=== PATIENT | female | born 1955 | race Caucasian/White ===

== ENCOUNTER 2017-10-28 08:02 | Inpatient (IN) ==
[2017-10-28] MEDS ORDERED: Sodium Chlor 0.9% Inj 500 ML IV.CONT ONE (08:30)
[2017-10-28] MEDS ORDERED: Chlorhexidine Gluconate 2% 1 Pack (2 Cloths) TOPICAL ONE (08:30)
[2017-10-28] MEDS ORDERED: Metoprolol Tartrate 25 MG Tablet PO ONE (08:30)
[2017-10-28] MEDS ORDERED: Sodium Chlor 0.9% Inj 73.07 ML, Ropivacaine 0.5% PF Inj 24.63 ML, Ketorolac Inj 30 MG, ... P-ARTICULR SCH ×5 (09:00)
[2017-10-28] MEDS ORDERED: TRANEXAMIC ACID IV.SIG SCH ×2 (09:00→12:00)
[2017-10-28] MEDS ORDERED: SODIUM CHLOR 0.9% IV.SIG SCH ×2 (09:00→12:00)
[2017-10-28] MEDS ORDERED: Vancomycin Inj 1,500 MG in Sodium Chlor 0.9% Inj 500 ML IV.SIG ONE (09:00)
--- NOTE | 2017-10-28 09:00 | MH ---
cc: Vincent Oates MD DATE OF ADMISSION: 10/28/2017 DIAGNOSIS: Osteoarthritis, right hip. PROPOSED SURGERY: Total hip replacement arthroplasty, right hip. PAST MEDICAL HISTORY: She has a history of anxiety and depression. She has a history of arthritis, high blood pressure and low back pain. MEDICATIONS: 1. Atenolol 50 mg daily. 2. Sertraline 75 mg daily. 3. Buspirone 15 mg daily. 4. Hydrocodone as needed for pain. 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 She smokes about a third of pack of cigarettes a day. HISTORY OF PRESENT ILLNESS: She saw me for the first time 09/11/2016 with complaints of pain in the right groin, that had gone on for more than a year. She also had low back pain on a chronic basis and also noted to have osteoarthritis of the left hip also. The patient has been treated nonoperatively with advised weight loss, oral antiinflammatory agents and also corticosteroid injections into the joint, given by the radiologist. She has now came to the point where she cannot deal with this pain anymore and therefore seeking total hip replacement arthroplasty. PROCEDURES: Total hip replacement arthroplasty through a posterior approach has been discussed in detail with the patient and her . They had some questions of wanting an anterior approach, and I told them that my recommendation was to go the posterior approach due to various different factors and that there is no substantial difference between either approach. The patient has consented to a total hip replacement arthroplasty that will be done through a posterior approach. Details of informed consent documented on the office record. Informed consent has been obtained. No guarantees made. PHYSICAL EXAMINATION: GENERAL: Reveals a moderately overweight white female, who walks with a limp. HEENT: Head is normocephalic. Pupils reactive to light. Face symmetrical. HEART: Regular rate and rhythm. No murmurs. LUNGS: Clear to auscultation. EXTREMITIES: Right hip has clear skin. She has painful range of motion with a mild flexion contracture. Pedal pulses are palpable and she moves her toes well. The potential problems of infection, dislocation, limb length discrepancy, posthospital postoperative course have all been discussed in detail. MD CHRISTINA Vargas/ct , 08:14 AM , 08:21 AM
[2017-10-28] MEDS ORDERED: fentaNYL Citrate Inj 250 MCG/5 ML Ampul ONE (09:28)
[2017-10-28] MEDS ORDERED: fentaNYL Citrate Inj 100 MCG/2 ML Ampul ONE (09:28)
[2017-10-28] MEDS ORDERED: Ketamine Inj 500 MG/10 ML Vial ONE (09:28)
[2017-10-28] MEDS ORDERED: Famotidine PF Inj 20 MG/2 ML Vial ONE (10:02)
[2017-10-28] MEDS: ceFAZolin 2 GM Premix Inj 2 GM/50 ML PIGGYBACK IV.SIG SCH ×2 (10:08→22:14)
[2017-10-28] MEDS ORDERED: Lidocaine PF 1% Inj 5 ML Syringe INFILTRATN ONE (10:11)
[2017-10-28] MEDS ORDERED: Neostigmine Inj 5 MG/5 ML Syringe IV.PUSH ONE (10:11)
[2017-10-28] MEDS ORDERED: Ketorolac Inj 30 MG/ML (IVP) Vial IV.PUSH ONE (10:11)
[2017-10-28] MEDS ORDERED: Phenylephrine/NS 1000 MCG/10ML Syringe IV.PUSH ONE (10:11)
[2017-10-28] MEDS ORDERED: Glycopyrrolate Inj 1 MG/5 ML Syringe IV.PUSH ONE (10:11)
[2017-10-28] MEDS ORDERED: Post-op Orders (for Pharmacy) OTHER STA (12:41)
[2017-10-28] MEDS ORDERED: Bisacodyl 10 MG Supp RECTAL PRN (12:41)
[2017-10-28] MEDS ORDERED: Naloxone Inj 0.4 MG/ML Vial IV.PUSH PRN ×3 (12:41→12:47)
[2017-10-28] MEDS ORDERED: Aluminum/Magnesium/Simethacone Susp 30 ML UDC PO PRN (12:41)
[2017-10-28] MEDS ORDERED: Morphine Inj 30 MG/30 ML PCA.VIAL PCA PRN (12:47)
[2017-10-28] MEDS ORDERED: Morphine Sulfate Inj 2 MG/ML Vial ONE (12:57)
--- NOTE | 2017-10-28 12:58 | P.DCO ---
- Physical Therapy Hip: Total hip, Posterior hip precautions, Abduction pillow while in bed Right Lower Extremity Weight Bearing: Weight bearing as tolerated Right Lower Extremity Range of Motion: Active assistive ROM - Nursing Nursing: Other (instruct proper wound care) Dressing changes: Do not change dressing (if problem, redness or drainage, call MD) - Certification Need for Home Health services: I have seen patient Tiarra aVldivia on 10/28/17. My clinical findings support the need for the requested home health care services because: Homebound Certification: I certify that my clinical findings support that this patient is homebound because: Homebound Certification: Unsafe to leave home unassisted, Unable to use public transportation
[2017-10-28] MEDS ORDERED: *Meperidine Inj 25 MG/ML Vial PERIprocedural Use ONLY ONE (13:05)
[2017-10-28] MEDS ORDERED: *morphine SULFATE 4 MG/ML PERIprocedure ONLY ONE ×2 (13:11→13:34)
--- NOTE | 2017-10-28 13:21 | MP ---
cc: Vincent Oates MD DATE OF OPERATION: 10/28/2017 PREOPERATIVE DIAGNOSIS: Osteoarthritis, right hip. POSTOPERATIVE DIAGNOSIS: Osteoarthritis, right hip. OPERATIVE PROCEDURE: Total hip replacement arthroplasty right hip using posterior approach. IMPLANTS USED: Navin Biomet cup porous coated 52 mm outer diameter with 2 dome screws, 36 mm E-poly, 10 mm Taperloc stem with lateral offset, 36 mm ceramic head, -6 neck length. SURGEON: Vincent Oates MD ANESTHESIA: General. TECHNIQUE: After induction of general anesthesia, the patient was placed in right lateral position supported by hip positioners. Strict lateral position was ascertained. Upper and lower extremity was properly positioned and protected. The right hip and right lower extremity thoroughly prepped with alcohol and ChloraPrep, and draped in routine fashion using double Ioban drapes. A curved lateral incision was made centered on the greater trochanter with the proximal portion of the incision, going posteriorly. Incision deepened through subcutaneous tissue and fascia. Trochanteric bursa was dissected and a Charnley retractor introduced. The hip was internally rotated, followed by dissection of the bursa and cauterization of multiple engorged veins in the area followed by reflection of the capsule and short rotators in a single flap thereby exposing the joint. The gluteus minimus reflected off the bone and a Steinmann pin placed vertically into the bone superior to the acetabulum and the pin bent to 90 degrees and used to measure length and offset followed by dislocation of the hip. The femoral neck osteotomized approximately 15 mm proximal to the lesser trochanter. Exploration of the acetabulum was carried out with the debridement of the labrum and synovial tissue, followed by reaming of the acetabulum by deepening it and also exposing bleeding subchondral bone to 51 mm. A 52 mm trial was a little bit tight, so I used a 52 mm reamer in reverse. The 52 mm cup was then impacted in place in 45 degrees of abduction, 20 degrees anteversion. Two dome screws were placed. A flat faced polyethylene was impacted in place. Femur was then exposed and cookie cutter was used, followed by canal finders and broaches to a 10 mm broach. Trial reduction was carried out with a -6 head, which revealed about 8 mm - 10 mm loss of offset and about 5 mm - 6 mm of lengthening. It was therefore decided to use a lateral offset stem. There was good stability. When trial implants were removed a lateral offset 10 mm stem impacted in place. It was about 3 mm - 4 mm short of bottoming out, but it was in good solid bone. A -6 ceramic head was placed on it and final reduction was carried out, getting good position and alignment, stability. Measurements revealed about 2 mm - 3 mm loss of offset and about 6 mm of lengthening. This relative lengthening should not be a problem since we are going to do the other hip and there will be some lengthening there also, thereby equalizing the limb lengths. The wound was irrigated with saline solution, followed by reapproximation of the flap of capsule and short external rotators to the corner of the gluteus medius and the inferior suture through a drill hole in the greater trochanter. Fascia was closed with #2 Quill and some Vicryl interrupted, the subcutaneous tissue with 0 and 2-0 Vicryl and the skin with 3-0 subcuticular Quill and Steri-Strips with Dermabond. The patient was transferred to the recovery room in satisfactory condition with an abduction pillow. The patient tolerated the procedure well. COMPLICATIONS: None. POSTOPERATIVE CONDITION: Satisfactory. PROGNOSIS: Good. ESTIMATED BLOOD LOSS: 350 mL MD CHRISTINA Vargas/quinten/farhana , 12:37 PM , 12:47 PM
[2017-10-28] MEDS: Sod Chloride 0.9% Inj 1,000 ML IV.CONT SCH ×2 (13:30→23:24)
[2017-10-28] MEDS ORDERED: HYDROmorphone PF Inj 2 MG/ML Vial ONE (13:46)
--- NOTE | 2017-10-28 14:05 | XR ---
EXAM DATE: 10/28/2017 1:55 PM EDT AGE/SEX: 62 years / Female INDICATIONS: Post-op right total hip arthroplasty. CLINICAL DATA: This is the patient's initial encounter. Patient reports that signs and symptoms have been present for 1 day and indicates a pain score of 8/10. MEDICAL/SURGICAL HISTORY: Hypertension. . Dental implants. COMPARISON: POI, XR HIP W/ AP PELVIS, BILATERAL, 09/21/2017. . FINDINGS: The patient is status post right total hip arthroplasty. Acetabular and femoral components appear wel l seated. A small amount of subcutaneous air is seen about the hip. No fracture or dislocation. CONCLUSION: Status post right hip arthroplasty. Electronically signed by: Estuardo Her MD 10/28/2017 2:03 PM EDT
[2017-10-28] MEDS ORDERED: Morphine Inj 4 MG/ML Vial IV.SIG ONE (14:15)
[2017-10-28] MEDS: Morphine Inj 30 MG/30 ML PCA.VIAL PCA PRN (14:19)
[2017-10-28] MEDS ORDERED: RIZATRIPTAN 10 MG PO PRN (14:30)
[2017-10-28] MEDS: ceFAZolin Inj 2,000 MG in Sodium Chlor 0.9% Inj 100 ML IV.SIG SCH ×2 (16:00→22:28)
[2017-10-28] MEDS: Ketorolac Inj 30 MG/ML (IVP) Vial IV.PUSH SCH (18:22)
[2017-10-28] MEDS: Senna/Docusate Sodium 8.6/50 MG Tablet PO SCH (20:25)
[2017-10-28] MEDS: Vancomycin Inj 1,000 MG in Sodium Chlor 0.9% Inj 250 ML IV.SIG SCH (23:19)
[2017-10-29] MEDS: Ketorolac Inj 30 MG/ML (IVP) Vial IV.PUSH SCH ×4 (00:28→18:07)
[2017-10-29] MEDS: Morphine Inj 30 MG/30 ML PCA.VIAL PCA PRN (00:36)
[2017-10-29] MEDS: ceFAZolin Inj 2,000 MG in Sodium Chlor 0.9% Inj 100 ML IV.SIG SCH (04:37)
--- NOTE | 2017-10-29 08:03 | P.PNOP ---
Subjective Interval history: Feeling great. Has been up to the bathroom. Wants to go home tomorrow. Physical Exam Vital signs: Vital Signs 10/28/17 08:51 10/28/17 12:52 10/28/17 12:55 Temperature 96.8 F L 98.4 F Pulse Rate 84 70 Respiratory Rate 20 14 Blood Pressure 143/85 H 145/80 H Pulse Oximetry 95 98 98 10/28/17 13:00 10/28/17 13:15 10/28/17 13:30 Temperature Pulse Rate 73 71 77 Respiratory Rate 15 16 16 Blood Pressure 130/63 124/52 L 120/53 L Pulse Oximetry 98 99 95 10/28/17 13:45 10/28/17 14:00 10/28/17 14:15 Temperature Pulse Rate 73 72 74 Respiratory Rate 16 15 15 Blood Pressure 119/50 L 111/55 L 109/56 L Pulse Oximetry 95 96 96 10/28/17 14:30 10/28/17 14:45 10/28/17 15:00 Temperature Pulse Rate 75 72 74 Respiratory Rate 16 16 16 Blood Pressure 105/53 L 99/57 L 100/54 L Pulse Oximetry 97 97 10/28/17 15:15 10/28/17 15:25 10/28/17 19:06 Temperature 97.2 F L 97.2 F L Pulse Rate 73 78 Respiratory Rate 18 18 Blood Pressure 95/50 L 93/54 L Pulse Oximetry 96 98 98 10/28/17 23:00 10/29/17 01:10 10/29/17 03:18 Temperature 97.7 F 97.7 F Pulse Rate 80 97 H Respiratory Rate 18 17 18 Blood Pressure 95/53 L 102/53 L Pulse Oximetry 93 L 95 10/29/17 07:47 Temperature 98.3 F Pulse Rate 82 Respiratory Rate 18 Blood Pressure 135/68 Pulse Oximetry 97 Intake & Output 10/28/17 10/29/17 10/29/17 18:59 06:59 18:59 Intake Total 3254.22 / 3254.22 1911 Output Total 350 / 350 Balance 2904.22 / 2904.22 1911 Weight 92.2 kg 92.2 kg Intake: IV 774.22 / 774.22 1432 / 1432 NS Inj 1,000 ML @ 100 mls/hr IV 982 / 982 .CONT .Q10H [facility] Rx#:[id number] Cyklokapron Inj 922 MG In NS 109.22 / 109.22 Inj 100 ML @ 200 mls/hr IV.SIG COMMUNITY OUTREACH ADVOCATE [facility] Rx#:[id number] Vancomycin Inj 1,000 MG In NS 250 / 250 Inj 250 ML @ 250 mls/hr IV.SIG Q12H [facility] Rx#:[id number] Vancomycin Inj 1,500 MG In NS 515 / 515 Inj 500 ML @ 250 mls/hr IV.SIG ONCE ONE Rx#:[id number] Ancef 2 GM Premix Inj 2 gm In 50 / 50 50 ml @ 100 mls/hr IV.SIG COMMUNITY OUTREACH ADVOCATE [facility] Rx#:[id number] Ancef Inj 2,000 MG In NS Inj 100 / 100 200 / 200 100 ML @ 200 mls/hr IV.SIG Q6H [facility] Rx#:[id number] Oral 480 / 480 480 / 480 Anesthesia Amount 1999 / 1999 Output: Estimated Blood Loss 350 / 350 Other: # Voids 1 3 Date of Last Bowel Movement 10/27/17 10/27/17 # Bowel Movements 0 Weight On Admission 92.2 kg Narrative: She just got back in bed. There is no swelling in the leg. Dressings are intact. She moves her toes well. Results - Labs Laboratory Results - last 24 hr 10/28/17 09:33 Blood Type O Positive Blood Type Recheck Required Antibody Screen Negative - Imaging Impressions Hip X-Ray 10/28/17 12:51 CONCLUSION: Status post right hip arthroplasty. Assessment and Plan - Ortho Post Op Day # 1 - Assessment and Plan Patient is doing very well post a total hip replacement right hip through posterior approach. Labs are ordered for today. Discharge tomorrow with home health care.
[2017-10-29] MEDS: Senna/Docusate Sodium 8.6/50 MG Tablet PO SCH ×2 (08:08→21:48)
[2017-10-29] MEDS: Sod Chloride 0.9% Inj 1,000 ML IV.CONT SCH (08:08)
[2017-10-29] MEDS: Sertraline 50 MG Tablet PO SCH (08:08)
[2017-10-29] MEDS: Atenolol 50 MG Tablet PO SCH (08:08)
[2017-10-29] MEDS: Rivaroxaban 10 MG Tablet PO SCH (11:09)
[2017-10-29] MEDS: Vancomycin Inj 1,000 MG in Sodium Chlor 0.9% Inj 250 ML IV.SIG SCH (11:11)
[2017-10-29 12:55] LABS: Baso % (Auto) 0.6 % (0.0-2.0); Eos # (Auto) 0.1 th/mm3 (0.0-0.4); Eos % (Auto) 0.9 % (0.0-4.0); Hematocrit 29.5 % (35.0-46.0); Hemoglobin 9.7 gm/dL (11.6-15.3); Lymph # (Auto) 2.1 th/mm3 (1.0-4.8); Lymph % (Auto) 27.3 % (9.0-44.0); Mean Corpuscular HGB Conc 32.9 % (32.0-36.0); Mean Corpuscular Hemoglobin 29.5 pg (27.0-34.0); Mean Corpuscular Volume 89.7 fL (80.0-100.0); Mean Platelet Volume 8.3 fL (7.0-11.0); Mono # (Auto) 0.7 th/mm3 (0.0-0.9); Mono % (Auto) 9.1 % (0.0-8.0); Neut # (Auto) 4.7 th/mm3 (1.8-7.7); Neut % (Auto) 62.1 % (16.0-70.0); Platelet Count 240 th/mm3 (150-450); Red Cell Distribution Width 13.7 % (11.6-17.2); White Blood Count 7.5 th/mm3 (4.0-11.0)
[2017-10-29 13:17] LABS: Calcium 7.9 mg/dL (8.5-10.1); Carbon Dioxide 27.2 meq/L (21.0-32.0); Potassium 3.8 meq/L (3.5-5.1)
[2017-10-30] MEDS: Ketorolac Inj 30 MG/ML (IVP) Vial IV.PUSH SCH ×3 (00:52→12:33)
[2017-10-30] MEDS: Sod Chloride 0.9% Inj 1,000 ML IV.CONT SCH ×2 (03:46→08:05)
[2017-10-30] MEDS: Atenolol 50 MG Tablet PO SCH (08:42)
[2017-10-30] MEDS: Sertraline 50 MG Tablet PO SCH (08:42)
[2017-10-30] MEDS: Senna/Docusate Sodium 8.6/50 MG Tablet PO SCH (08:42)
--- NOTE | 2017-10-30 10:40 | P.PNOP ---
Subjective Interval history: fine except a little nauseous this morning when the nursing students wanted to look at her dressing by turning her over. Also gave some pain. Ready to go home. Physical Exam Vital signs: Vital Signs 10/29/17 11:12 10/29/17 14:39 10/29/17 16:00 Temperature 97.7 F 98.7 F Pulse Rate 76 86 Respiratory Rate 18 18 Blood Pressure 102/51 L 94/54 L Pulse Oximetry 95 97 10/29/17 20:00 10/30/17 00:00 10/30/17 08:00 Temperature 98.3 F 97.9 F 98.5 F Pulse Rate 82 86 85 Respiratory Rate 18 Blood Pressure 104/53 L 120/67 126/66 Pulse Oximetry 95 97 94 L 10/30/17 09:28 Temperature Pulse Rate Respiratory Rate 18 Blood Pressure Pulse Oximetry Intake & Output 10/29/17 10/30/17 10/30/17 18:59 06:59 18:59 Intake Total 3250 / 3250 720 / 720 500 / 500 Balance 3250 / 3250 720 / 720 500 / 500 Intake: IV 2250 / 2250 0 / 0 500 / 500 NS Inj 1,000 ML @ 100 mls/hr IV 2000 / 2000 .CONT .Q10H [facility] Rx#:[id number] Vancomycin Inj 1,000 MG In NS 250 / 250 Inj 250 ML @ 250 mls/hr IV.SIG Q12H [facility] Rx#:[id number] Oral 1000 / 1000 720 / 720 Other: # Voids 5 5 Date of Last Bowel Movement 10/27/17 10/27/17 Narrative: She is awake alert and oriented. She is in no obvious pain. No particular swelling around the right hip. Results - Labs CBC & Chem 7: 10/29/17 11:50 10/29/17 11:50 Laboratory Results - last 24 hr 10/29/17 10/29/17 11:50 11:50 WBC 7.5 RBC 3.30 L Hgb 9.7 L Hct 29.5 L MCV 89.7 MCH 29.5 MCHC 32.9 RDW 13.7 Plt Count 240 MPV 8.3 Neut % (Auto) 62.1 Lymph % (Auto) 27.3 [place] % (Auto) 9.1 H Eos % (Auto) 0.9 Baso % (Auto) 0.6 Neut # (Auto) 4.7 Lymph # (Auto) 2.1 [place] # (Auto) 0.7 Eos # (Auto) 0.1 Baso # (Auto) 0.0 WBC Differential . Differential Comment Auto diff final Sodium 143 Potassium 3.8 Chloride 109 H Carbon Dioxide 27.2 Anion Gap 7 BUN 14 Creatinine 0.87 Estimated GFR 66 L Random Glucose 99 Calcium 7.9 L Assessment and Plan - Ortho Post Op Day # 2 - Assessment and Plan Postop day 2 right total hip, doing well. Will discharge her with the pain medicine and nausea medicine and anticoagulation. She is appointment to see me in the office 12 days postop. Home healthcare has been arranged for.
[2017-10-30] MEDS: Rivaroxaban 10 MG Tablet PO SCH (12:33)
--- NOTE | 2017-10-31 23:47 | MD ---
cc: Vincent Oates MD DATE OF DISCHARGE: 10/30/2017 ADMITTING DIAGNOSIS: Severe osteoarthritis, right hip. DISCHARGE DIAGNOSIS: Severe osteoarthritis, right hip. ADDITIONAL DIAGNOSIS: Osteoarthritis, left hip. HISTORY OF PRESENT ILLNESS: History consisted of several years of pain and discomfort in both hip joints treated nonoperatively with anti-inflammatories, occasional narcotics and intra-articular steroid injections. The patient has come to the point where it is severely interfering with activities of daily living and therefore opted for total hip replacement arthroplasty. HOSPITAL COURSE: The patient was appropriately worked up preoperatively and brought into the hospital on 10/28/2012, at which time she underwent total hip replacement arthroplasty with a posterior approach using Navin Biomet components. Postoperative course was uneventful. Postoperative x-rays and labs were all satisfactory. The patient has been ambulated. She is only having mild pain. She is discharged with a walker with front wheels and bedside commode. Arrangements made for home health care with physical therapy and nursing. DISCHARGE MEDICATIONS: Hydrocodone 7.5 every 6 hours p.r.n. for pain, #56 and on Vistaril and 4 mg b.i.d. p.r.n. for nausea, #10; and Xarelto 10 mg daily #20 for prophylactic anticoagulation for prevention of venous thrombosis events. Patient will see me in the office on 11/09/2012 for followup. DISCHARGE CONDITION: Stable. Discharge situation improved. MD CHRISTINA Vargas/caitlin , 09:50 AM , 09:58 AM
== END 2017-10-30 14:20 | disposition home health service (06) ==
LOC: HSDI 08:02 → N06 15:28
PROVIDERS: ADMIT Orthopaedic Surgery; ATTEND Orthopaedic Surgery

== ENCOUNTER 2017-12-23 05:08 | Inpatient (IN) ==
[2017-12-23] MEDS ORDERED: Metoprolol Tartrate 25 MG Tablet PO ONE (05:45)
[2017-12-23] MEDS ORDERED: Chlorhexidine Gluconate 2% 1 Pack (2 Cloths) TOPICAL ONE (05:45)
[2017-12-23] MEDS ORDERED: Sodium Chlor 0.9% Inj 500 ML IV.CONT ONE (05:45)
[2017-12-23] MEDS ORDERED: Sodium Chlor 0.9% Inj 60 ML, Bupivacaine Liposo PF 1.3% Inj 20 ML P-ARTICULR SCH ×2 (05:45)
[2017-12-23] MEDS ORDERED: ceFAZolin 2 GM Premix Inj 2 GM/50 ML PIGGYBACK IV.SIG SCH (06:00)
[2017-12-23] MEDS ORDERED: TRANEXAMIC ACID IV.SIG SCH ×2 (06:00→08:46)
[2017-12-23] MEDS ORDERED: Vancomycin Inj 1,500 MG in Sodium Chlor 0.9% Inj 500 ML IV.SIG SCH (06:00)
[2017-12-23] MEDS ORDERED: SODIUM CHLOR 0.9% IV.SIG SCH ×2 (06:00→08:46)
[2017-12-23] MEDS ORDERED: Ketamine Inj 50 MG/5 ML Syringe IV.PUSH ONE (06:33)
[2017-12-23] MEDS ORDERED: Neostigmine Inj 5 MG/5 ML Syringe IV.PUSH ONE (06:46)
[2017-12-23] MEDS ORDERED: Lidocaine PF 1% Inj 5 ML Syringe INFILTRATN ONE (06:46)
[2017-12-23] MEDS ORDERED: Glycopyrrolate Inj 1 MG/5 ML Syringe IV.PUSH ONE (06:46)
[2017-12-23] MEDS ORDERED: Phenylephrine/NS 1000 MCG/10ML Syringe IV.PUSH ONE (06:46)
[2017-12-23] MEDS ORDERED: fentaNYL Citrate Inj 100 MCG/2 ML Ampul ONE (09:56)
[2017-12-23] MEDS ORDERED: *morphine SULFATE 4 MG/ML PERIprocedure ONLY ONE ×3 (09:57→10:13)
[2017-12-23] MEDS ORDERED: Morphine Inj 30 MG/30 ML PCA.VIAL PCA ONE (10:13)
[2017-12-23] MEDS: Sod Chloride 0.9% Inj 1,000 ML IV.CONT SCH ×2 (10:22→22:22)
[2017-12-23] MEDS ORDERED: *HYDROmorphone PF Inj 1 MG/ML Ampul PERIprocedural Use ONLY ONE (10:26)
[2017-12-23] MEDS ORDERED: Post-op Orders (for Pharmacy) OTHER STA (10:27)
[2017-12-23] MEDS ORDERED: Aluminum/Magnesium/Simethacone Susp 30 ML UDC PO PRN (10:27)
[2017-12-23] MEDS ORDERED: Bisacodyl 10 MG Supp RECTAL PRN (10:27)
[2017-12-23] MEDS ORDERED: Naloxone Inj 0.4 MG/ML Vial IV.PUSH PRN (10:30)
[2017-12-23] MEDS ORDERED: Morphine Inj 30 MG/30 ML PCA.VIAL PCA PRN (10:30)
--- NOTE | 2017-12-23 10:34 | P.DCO ---
- Physical Therapy Hip: Total hip, Protocol: Left, Posterior hip precautions, Abduction pillow while in bed Left Lower Extremity Weight Bearing: Weight bearing as tolerated Left Lower Extremity Range of Motion: Active ROM - Nursing Nursing: Dressing changes Dressing changes: Coverderm/Primapore - Certification Need for Home Health services: I have seen patient Tiarra Valdivia on 12/23/17. My clinical findings support the need for the requested home health care services because: Need for Home Health Services: Limited ability to care for self Homebound Certification: I certify that my clinical findings support that this patient is homebound because: Homebound Certification: Unsafe to leave home unassisted
--- NOTE | 2017-12-23 10:56 | MP ---
cc: Vincent Oates MD DATE OF OPERATION: 12/23/2017 PREOPERATIVE DIAGNOSIS: Osteoarthritis, left hip. POSTOPERATIVE DIAGNOSIS: Osteoarthritis, left hip. OPERATIVE PROCEDURE: Total hip replacement arthroplasty, left hip with the posterior approach. TECHNIQUE: After induction of general anesthesia with intubation, patient was placed in left lateral position supported by hip positioners. Axillary roll was placed, and upper extremities and well leg were properly protected. Strict lateral position was ascertained. Left hip and left lower extremity thoroughly prepped with alcohol and ChloraPrep and draped in routine fashion including double Ioban drapes. Standard lateral incision was made for posterior approach, deepened through about 5 cm - 6 cm of adipose tissue to get to the fascia. The fascia was incised in the line of skin incision centered on the trochanter. The trochanteric bursa dissected and then self-retaining retractor introduced. The hip was internally rotated, followed by sectioning of the short external rotators and capsule in a single layer in an inverted L-shaped fashion with the vertical limb of the L along the intertrochanteric line. Hemostasis was obtained with cautery. The gluteus medius dissected off the acetabulum and a Steinmann pin placed vertically just above the acetabulum and this pin was bent 90 degrees and used to align measuring length and offset on a predetermined anuj on the greater trochanter. Hip was now dislocated followed by femoral neck osteotomy followed by preparation of acetabulum. The labrum was excised and some of the osteophytes were excised. Acetabulum was reamed to bleeding subchondral bone followed by introduction of a 52 mm Navin Continuum cup impacted in place in 45 degrees of abduction, 20 degrees anteversion. Two dome screws were placed; flat-face liner impacted in place. Femur was now prepared using the uniqueie cutter, lateralizer, canal finder and broaches to 10 mm broach and trial reduction was carried out with a -6 neck and it showed about 11 mm loss of offset and about 10 mm of lengthening. Indeed, we wanted to lengthen her to equalize to the other leg, but wanted to diminish the lengthening and also improve the offset. Therefore, about 3 mm of neck were removed and the canal now prepped with a 9 mm broach; bottomed it out. A lateral offset 9 mm stem impacted in place in 20 degrees of anteversion. It was about 4 mm shy of bottoming out completely in spite of significant impaction. A -6 neck length, 36 mm ceramic head was then impacted in place. Final reduction was carried out with good range of motion, good stability and we have 9 mm of lengthening and about 6 mm - 7 mm loss of offset. This should just about equalize both hips and make it symmetrical. The joint was irrigated with saline solution followed by reattachment of the wad of short external rotator and capsule to the posterior aspect of the greater trochanter, including the corner of the gluteus medius tendon. Fascia closed with some #2 Vicryl interrupted and #2 Quill running, subcutaneous tissue closed with Vicryl and skin closed with a 3-0 subcuticular Quill and Prineo dressing with Dermabond. Dressings were applied, followed by abduction pillow. The patient transferred to recovery room in satisfactory condition. The patient tolerated the procedure well. COMPLICATIONS: None. POSTOPERATIVE CONDITION: Satisfactory. ESTIMATED BLOOD LOSS: 350 mL PROGNOSIS: Good. MD CHRISTINA Vargas/quinten/mckay , 09:28 AM , 09:39 AM
[2017-12-23] MEDS ORDERED: Ketorolac Inj 30 MG/ML (IVP) Vial ONE (10:59)
[2017-12-23] MEDS: Ketorolac Inj 30 MG/ML (IVP) Vial IV.PUSH SCH ×3 (11:55→23:15)
[2017-12-23] MEDS ORDERED: ceFAZolin 2 GM Premix Inj 2 GM/100 ML BAG IV.SIG SCH (12:00)
[2017-12-23] MEDS ORDERED: Sodium Chlor 0.9% Inj 250 ML IV.SIG ONE ×2 (12:22→15:00)
[2017-12-23] MEDS: ceFAZolin 2 GM Premix Inj 2 GM/50 ML PIGGYBACK IV.SIG SCH ×2 (12:30→17:31)
[2017-12-23] MEDS: Sodium Chlor 0.9% Inj 250 ML IV.SIG ONE ×2 (12:40→13:40)
[2017-12-23] MEDS ORDERED: Albumin Human 5% Inj 250 ML IV.SIG ONE (15:00)
[2017-12-23] MEDS ORDERED: Vancomycin Inj 1,000 MG in Sodium Chlor 0.9% Inj 250 ML IV.SIG SCH (18:00)
--- NOTE | 2017-12-23 18:37 | ECG ---
Date Performed: 12/23/2017 Time Performed: 06:21:25 PTAGE: 62 years EKG: Sinus rhythm NORMAL ECG PREVIOUS TRACING : 05/07/2015 21.40 Since the previous tracing, no significant change noted DOCTOR: Ariel Sparks Interpretating Date/Time 12/23/2017 18:35:29
[2017-12-23] MEDS: Senna/Docusate Sodium 8.6/50 MG Tablet PO SCH (21:26)
[2017-12-23] MEDS: Vancomycin Inj 1,000 MG in Sodium Chlor 0.9% Inj 250 ML IV.SIG SCH (23:17)
[2017-12-24] MEDS: ceFAZolin 2 GM Premix Inj 2 GM/50 ML PIGGYBACK IV.SIG SCH
[2017-12-24] MEDS: Sod Chloride 0.9% Inj 1,000 ML IV.CONT SCH ×3 (04:08→19:27)
[2017-12-24 04:36] LABS: Hemoglobin 10.1 gm/dL (11.6-15.3)
[2017-12-24 05:04] LABS: Calcium 8.2 mg/dL (8.5-10.1); Carbon Dioxide 26.7 meq/L (21.0-32.0); Potassium 3.8 meq/L (3.5-5.1)
[2017-12-24] MEDS: Ketorolac Inj 30 MG/ML (IVP) Vial IV.PUSH SCH ×4 (06:22→23:58)
[2017-12-24] MEDS: Senna/Docusate Sodium 8.6/50 MG Tablet PO SCH ×2 (10:06→20:24)
[2017-12-24] MEDS: Rivaroxaban 10 MG Tablet PO SCH (10:06)
[2017-12-24] MEDS: Vancomycin Inj 1,000 MG in Sodium Chlor 0.9% Inj 250 ML IV.SIG SCH (11:13)
--- NOTE | 2017-12-24 11:37 | XR ---
EXAM DATE: 12/23/2017 10:52 AM EST AGE/SEX: 62 years / Female INDICATIONS: Post op, left hip replacement. CLINICAL DATA: This is the patient's initial encounter. Patient reports that signs and symptoms have been present for 1 day and indicates a pain score of 0/10. MEDICAL/SURGICAL HISTORY: None. . Right total hip replacement COMPARISON: POI, XR HIP W/ AP PELVIS, BILATERAL, 09/21/2017. . FINDINGS: AP pelvis and left hip x-ray are provided. There are bilateral hip arthroplasties. The orthopedic hardware appears well-positioned. There is no evidence of complication. Lateral imaging of the left arthroplasty is unremarkable. No pelvic fracture is seen. CONCLUSION: Orthopedic hardware is well-positioned. No acute abnormality is identified. Electronically signed by: Jason Abdullahi MD 12/23/2017 10:59 AM EST
--- NOTE | 2017-12-24 13:42 | P.PNOP ---
Subjective Interval history: did not come to room till 530 yesterday bec of low BP, also needed st cath. peeing ok today Physical Exam Vital signs: Vital Signs 12/23/17 13:45 12/23/17 14:00 12/23/17 14:15 Temperature Pulse Rate 62 76 69 Respiratory Rate 15 21 14 Blood Pressure 87/53 L 88/51 L 96/56 L Pulse Oximetry 97 94 L 97 12/23/17 14:30 12/23/17 14:45 12/23/17 15:00 Temperature Pulse Rate 67 84 78 Respiratory Rate 13 20 20 Blood Pressure 94/55 L 109/66 138/66 Pulse Oximetry 97 93 L 94 L 12/23/17 15:15 12/23/17 15:30 12/23/17 15:45 Temperature Pulse Rate 85 81 79 Respiratory Rate 20 15 19 Blood Pressure 108/59 L 97/54 L 113/55 L Pulse Oximetry 95 97 97 12/23/17 16:00 12/23/17 20:40 12/23/17 23:45 Temperature 98.8 F 98.1 F 97.6 F Pulse Rate 79 92 H 75 Respiratory Rate 19 17 17 Blood Pressure 114/56 L 94/53 L 107/57 L Pulse Oximetry 97 96 94 L 12/24/17 04:05 12/24/17 08:00 12/24/17 12:00 Temperature 97.2 F L 97.8 F 97.9 F Pulse Rate 74 85 87 Respiratory Rate 17 14 15 Blood Pressure 132/63 98/55 L 106/56 L Pulse Oximetry 96 95 96 Intake & Output 12/23/17 12/24/17 12/24/17 18:59 06:59 18:59 Intake Total 4798.78 / 4798.78 880 / 880 1000 / 1000 Output Total 1350 / 1350 Balance 3448.78 / 3448.78 880 / 880 1000 / 1000 Weight 93 kg 93 kg Intake: IV 2648.78 / 2648.78 400 / 400 1000 / 1000 NS Inj 1,000 ML @ 125 mls/hr IV 650 / 650 1000 / 1000 .CONT .Q8H [facility] Rx#:[id number] Ofirmev Inj 1,000 mg In 100 ml 100 / 100 100 / 100 @ 400 mls/hr IV.SIG Q12H [facility] Rx #:[id number] Buminate 5% Inj 250 ML @ 250 250 / 250 mls/hr IV.SIG ONCE ONE Rx#: [id number] NS Inj 250 ML @ 1000 mls/hr IV. 750 / 750 SIG NOW ONE Rx#:[id number] Cyklokapron Inj 939 MG In NS 218.78 / 218.78 Inj 100 ML @ 200 mls/hr IV.SIG ONCE [facility] Rx#:[id number] Vancomycin Inj 1,000 MG In NS 250 / 250 Inj 250 ML @ 250 mls/hr IV.SIG Q12H [facility] Rx#:[id number] Vancomycin Inj 1,500 MG In NS 530 / 530 Inj 500 ML @ 250 mls/hr IV.SIG ONCE [facility] Rx#:[id number] Ancef 2 GM Premix Inj 2 gm In 150 / 150 50 / 50 50 ml @ 200 mls/hr IV.SIG Q6H [facility] Rx#:[id number] Oral 150 / 150 480 / 480 Anesthesia Amount 1999 / 1999 Output: Estimated Blood Loss 350 / 350 Urine Amount (Catheter) 1000 / 1000 Straight 1000 / 1000 Other: # Voids 2 5 Date of Last Bowel Movement 12/23/17 12/23/17 12/23/17 # Bowel Movements 0 Narrative: A,A, and o In bed.comfortable. Moves toes well. drsgs dry, leg in good orientation - Urinary Catheter Management Straight Cath placed during this visit: yes, but has since been removed by the nurse Reason for continuing: Acute urinary retention Insertion date: 12/23/17 Insertion time: 14:00 Removal date: 12/23/17 Removal time: 14:30 Results - Labs CBC & Chem 7: 12/24/17 04:14 12/24/17 04:14 Laboratory Results - last 24 hr 12/24/17 12/24/17 04:14 04:14 Hgb 10.1 L Hct 30.0 L Sodium 143 Potassium 3.8 Chloride 109 H Carbon Dioxide 26.7 Anion Gap 7 BUN 13 Creatinine 0.82 Estimated GFR 70 L Random Glucose 104 Calcium 8.2 L - Imaging Impressions Hip X-Ray 12/23/17 00:00 CONCLUSION: Orthopedic hardware is well-positioned. No acute abnormality is identified. Assessment and Plan - Ortho Post Op Day # 1 - Assessment and Plan doing very well. DC tomorrow with [facility]
[2017-12-25] MEDS: Ketorolac Inj 30 MG/ML (IVP) Vial IV.PUSH SCH (05:09)
[2017-12-25] MEDS: Rivaroxaban 10 MG Tablet PO SCH (08:04)
[2017-12-25] MEDS: Senna/Docusate Sodium 8.6/50 MG Tablet PO SCH (08:04)
[2017-12-25 08:16] VITALS: RESP 16
[2017-12-25] MEDS ORDERED: Acetaminophen 325 MG Tablet PO SCH (09:00)
--- NOTE | 2017-12-25 09:56 | P.PNOP ---
Subjective Interval history: great, ready to go home. Physical Exam Vital signs: Vital Signs 12/24/17 12:00 12/24/17 16:00 12/24/17 19:45 Temperature 97.9 F 97.7 F 98.3 F Pulse Rate 87 87 93 H Respiratory Rate 15 16 18 Blood Pressure 106/56 L 121/60 104/58 L Pulse Oximetry 96 96 94 L 12/24/17 23:45 12/25/17 04:50 12/25/17 08:00 Temperature 97.9 F 98.6 F 98.2 F Pulse Rate 101 H 93 H 87 Respiratory Rate 17 18 16 Blood Pressure 170/93 H 123/65 125/75 Pulse Oximetry 95 94 L 94 L Intake & Output 12/24/17 12/25/17 12/25/17 18:59 06:59 18:59 Intake Total 1720 / 1720 700 / 700 Balance 1720 / 1720 700 / 700 Weight 93.5 kg Intake: IV 1000 / 1000 100 / 100 NS Inj 1,000 ML @ 125 mls/hr IV 1000 / 1000 .CONT .Q8H [facility] Rx#:[id number] Ofirmev Inj 1,000 mg In 100 ml 100 / 100 @ 400 mls/hr IV.SIG Q12H [facility] Rx #:[id number] Oral 720 / 720 600 / 600 Other: # Voids 6 4 Date of Last Bowel Movement 12/23/17 12/23/17 # Bowel Movements 0 Narrative: dressings have been changed, [place], dry. comfortable in bed. she says she got up to bathroom all by herself this am. No l ;eg swelling, moves toes well - Urinary Catheter Management Straight Cath placed during this visit: yes, but has since been removed by the nurse Reason for continuing: Acute urinary retention Insertion date: 12/23/17 Insertion time: 14:00 Removal date: 12/23/17 Removal time: 14:30 Results - Labs CBC & Chem 7: 12/24/17 04:14 12/24/17 04:14 - Imaging Impressions Hip X-Ray 12/23/17 00:00 CONCLUSION: Orthopedic hardware is well-positioned. No acute abnormality is identified. Assessment and Plan - Ortho Post Op Day # 2 - Assessment and Plan doing very well. DC tomorrow with [facility] - Attending Attestation Attending Attestation: DC home with [facility]. Rxs for narco, xarelto anf zofran FU
[2017-12-25 12:11] VITALS: BP 131/69; PULSE 97; TEMP 98.3; O2SAT 95
--- NOTE | 2017-12-25 12:27 | MD ---
cc: Vincent Oates MD DATE OF DISCHARGE: 12/25/2017 DATE OF ADMISSION: 12/23/2017 DATE OF DISCHARGE: 12/25/2017 ADMITTING DIAGNOSIS: Osteoarthritis, left hip. ADDITIONAL DIAGNOSES: 1. Seven weeks post total hip replacement, right hip. 2. Osteoarthritis, right hip. DISCHARGE DIAGNOSES: 1. Seven weeks post total hip replacement, right hip. 2. Osteoarthritis, right hip. HISTORY OF PRESENT ILLNESS: History consisted of chronic problems with both hips with osteoarthritis and when we exhausted nonoperative care, she was brought in for right total hip replacement arthroplasty 7 weeks ago from which she has done very well. She is now brought in for a left total hip replacement arthroplasty, which was performed on the day of surgery. HOSPITAL COURSE: Postoperative course including postoperative labs and x-rays were all satisfactory. She did have some hypotension in the immediate postoperative period, but her blood pressure is normal now. The patient has been up and about with physical therapy. She is aware of dislocation precautions. Home health care has been arranged for wound check and physical therapy. She will see me in the office 01/04/2018 for followup. DISCHARGE MEDICATIONS: 1. [place] 5/325 two tablets every 6 hours p.r.n., #56. 2. Zofran 4 mg t.i.d. p.r.n., #10. 3. Xarelto 10 mg daily, #14. DISCHARGE CONDITION: Good. Vincent Oates MD SS/sidney , 09:58 AM , 10:03 AM
== END 2017-12-25 12:14 | disposition home health service (06) ==
LOC: HSDC 05:08 → EDSTATUS 07:00 → HSDI 10:24 → N06 16:23
PROVIDERS: ADMIT Family Medicine; ATTEND Orthopaedic Surgery